=== PATIENT | male | born 1980 | race Caucasian/White ===

== ENCOUNTER 2023-10-17 11:46 | Emergency (ER) | payer OTHER ==
[2023-10-17 11:54] VITALS: RESP 18
[2023-10-17] MEDS: DIPH,PERTUS(ACELL)TETVAC-LF 0.5 ML VIAL IM ONE (13:05)
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
[2023-10-17] MEDS: ACET/COD 300 MG/30 MG STARTER PACK 6 TAB BTL PO STA (14:19)
[2023-10-17 14:34] VITALS: BP 146/98; PULSE 88; TEMP 98.1
== END 2023-10-17 14:33 | disposition home or self-care (01) ==
LOC: EC 11:46
DX: S80.211A Abrasion, right knee, initial encounter (principal); M25.512 Pain in left shoulder; M25.531 Pain in right wrist; M25.532 Pain in left wrist; Z88.0 Allergy status to penicillin; Z87.891 Personal history of nicotine dependence; Z23 Encounter for immunization; V20.49XA Other motorcycle driver injured in collision with pedestrian or animal in traffic accident, initial encounter; Y92.410 Unspecified street and highway as the place of occurrence of the external cause; Y93.55 Activity, bike riding
CPT/HCPCS: 71045; 72050; 73502; 90471; 90715; 99284